=== PATIENT | female | born 1950 ===

== ENCOUNTER 2019-03-04 06:03 | Day surgery (SDC) | payer OTHER ==
[~2019-03-04 06:03] MED LIST: FAMOTIDINE20 MG/2 M1 IV; Intestinex CAP PO; ZETIA10 MG; ZOCOR40 MG; ZOCOR40 MG PO
== END 2019-03-04 10:25 | disposition home or self-care (01) ==
LOC: AMB-ENDOS 06:03
DX: K62.82 Dysplasia of anus (principal); K64.4 Residual hemorrhoidal skin tags

== ENCOUNTER → 2020-08-31 | Outpatient (CLI) | payer OTHER | END | disposition home or self-care (01) | LOC: MAMO-SONO 08-21 09:15 → SONOGRAMA 07:58 → MAMO-SONO 08:45 | PROVIDERS: ATTEND Obstetrics & Gynecology | DX: D25.1 Intramural leiomyoma of uterus (principal); N84.0 Polyp of corpus uteri ==

== ENCOUNTER → 2020-11-09 | Emergency (ER) | payer OTHER ==
[~2020-11-09] VITALS: Ht 149.9 cm; Wt 56.7 kg
[~2020-11-09] MED LIST changes: +BUTALBIT-ACETA1 EACH PO
== END | disposition home or self-care (01) ==
LOC: ER 19:43
DX: G44.89 Other headache syndrome (principal); H57.12 Ocular pain, left eye